=== PATIENT | male | born 1965 ===

== ENCOUNTER 2017-05-13 17:02 | Emergency (ER) | payer OTHER ==
[2017-05-13 17:16] VITALS: TEMP 97.9
--- NOTE | 2017-05-13 17:27 | ED ---
General Adult HPI - General Chief complaint: Abdominal Pain Stated complaint: rt side pain Time Seen by Provider: 05/13/17 17:18 Source: patient, RN notes reviewed Mode of arrival: ambulatory Limitations: no limitations - History of Present Illness Initial comments: Patient's a 51-year-old malewith a past medical history, who presents emergency room today with a chief complaint of right-sided flank pain that began this morning when he woke up. Patient does admit that it was a sharp type pain. He states it was constant throughout the day until he was driving here to the emergency room. Patient states that he has never had similar symptoms in the past. He does admit that he felt a little nauseated. She denies any pain or symptoms at this time. Patient denies any recent fever, chills, shortness of breath, chest pain, back pain, numbness or tingling, dysuria or hematuria, constipation or diarrhea, headaches or visual changes, or any other complaints. - Related Data Previous Rx's Medication Instructions Recorded Hydrocodone/Acetaminophen [Raymond 1 each PO Q6HR PRN #15 tab 05/13/17 5-325] Ibuprofen [Motrin] 600 mg PO Q6HR PRN #40 day 05/13/17 Ondansetron Odt [Zofran ODT] 4 mg PO Q8HR PRN #20 tab 05/13/17 Tamsulosin [Flomax] 0.4 mg PO DAILY #10 cap 05/13/17 Allergies Allergy/AdvReac Type Severity Reaction Status Date / Time No Known Allergies Allergy Verified 05/13/17 17:16 Review of Systems ROS Statement: Those systems with pertinent positive or pertinent negative responses have been documented in the HPI. ROS Other: All systems not noted in ROS Statement are negative. Past Medical History Past Medical History: No Reported History History of Any Multi-Drug Resistant Organisms: None Reported Past Surgical History: No Surgical Hx Reported Additional Past Surgical History / Comment(s): sinus surgery Past Psychological History: No Psychological Hx Reported Smoking Status: Current every day smoker Past Alcohol Use History: None Reported General Exam - General Exam Comments Initial Comments: General: The patient is awake and alert, in no distress, and does not appear acutely ill. Eye: Pupils are equal, round and reactive to light, extra-ocular movements are intact. No nystagmus. There is normal conjunctiva bilaterally. No signs of icterus. Ears, nose, mouth and throat: There are moist mucous membranes and no oral lesions. Neck: The neck is supple, there is no tenderness or JVD. Cardiovascular: There is a regular rate and rhythm. No murmur, rub or gallop is appreciated. Respiratory: Lungs are clear to auscultation, respirations are non-labored, breath sounds are equal. No wheezes, stridor, rales, or rhonchi. Gastrointestinal: Soft, non-distended, non-tender abdomen without masses or organomegaly noted. There is no rebound or guarding present. No CVA tenderness. Bowel sounds are unremarkable. Musculoskeletal: Normal ROM, no tenderness. Strength 5/5. Sensation intact. Pulses equal bilaterally 2+. Neurological: A&O x 3. CN II-XII intact, There are no obvious motor or sensory deficits. Coordination appears grossly intact. Speech is normal. Skin: Skin is warm and dry and no rashes or lesions are noted. Psychiatric: Cooperative, appropriate mood & affect, normal judgment. Limitations: no limitations Course Vital Signs 05/13/17 17:12 Temperature 97.9 F Pulse Rate 76 Respiratory 16 Rate Blood Pressure 173/82 O2 Sat by Pulse 100 Oximetry Medical Decision Making - Medical Decision Making Patient reexamined at this time shows no signs of distress. Resting comfortable in the stretcher. He denies any complaints here in emergency room. He does admit that the pain started this morning was located in the right flank. He states never had kidney stones before. Never had pain like this. Patient's labs been reviewed is urinalysis shows a large amount of blood. No sign of infection. On initial exam it was discussed with patient about further workup with blood work at the time he was comfortable in doing the urinalysis as he states he was not having any pain. He still comfortable with no pain at this time. Does not want to do further workup of any imaging of the CAT scan or x-ray. Has declined the blood work. States he feels comfortable being discharged home with follow-up this family physician. He states he is from out of town and lives in [facility]. Patient will be treated for kidney stone placed on Flomax given pain medication and nausea medication to use for his symptoms. He is advised to return here to the emergency room or follow-up if symptoms increase or worsen. Advised to follow-up with family doctor over the next 2 days. He states understanding and is in agreement. - Lab Data Lab Results 05/13/17 Range/Units 17:24 Urine Color Yellow Urine Appearance Clear (Clear) Urine pH 6.5 (5.0-8.0) Ur Specific [place] 1.007 (1.001-1.035) Urine Protein 1+ H (Negative) Urine Glucose (UA) Negative (Negative) Urine Ketones Negative (Negative) Urine Blood Large H (Negative) Urine Nitrite Negative (Negative) Urine Bilirubin Negative (Negative) Urine Urobilinogen <2.0 (<2.0) mg/dL Ur Leukocyte Esterase Negative (Negative) Urine RBC 124 H (0-5) /hpf Urine WBC 5 (0-5) /hpf Ur Squamous Epith Cells <1 (0-4) /hpf Hyaline Casts 9 H (0-2) /lpf Urine Mucus Few H (None) /hpf Disposition Clinical Impression: Kidney stone Disposition: HOME SELF-CARE Condition: Good Instructions: Kidney Stones (ED) Additional Instructions: Please use medication as discussed. Please follow-up with family doctor in the next 2 days. Please return to emergency room if the symptoms increase or worsen or for any other concerns. Prescriptions: Hydrocodone/Acetaminophen [Raymond 5-325] 1 each PO Q6HR PRN #15 tab PRN Reason: Pain Ibuprofen [Motrin] 600 mg PO Q6HR PRN #40 day PRN Reason: Pain Ondansetron Odt [Zofran ODT] 4 mg PO Q8HR PRN #20 tab PRN Reason: Nausea Tamsulosin [Flomax] 0.4 mg PO DAILY #10 cap Referrals: None,Stated [Primary Care Provider] - 1-2 days Time of Disposition: 18:08
[2017-05-13 17:48] LABS: Appearance,Urine Clear (Clear); Bilirubin,Urine Negative (Negative); Glucose,Urine (UA) Negative (Negative); Ketones,Urine Negative (Negative); Leukocyte Esterase,Urine Negative (Negative); Mucus,Urine Few /hpf; Nitrite,Urine Negative (Negative); PH, Urine 6.5 (5.0-8.0); Particle Count 3520; Protein,Urine 1+ (Negative); RBC,Urine 124 /hpf (0-5); Specific Gravity,Urine 1.007 (1.001-1.035); Squamous Epithelial Cell,Urine <1 /hpf (0-4); UA Billing (MACRO vs. MICRO) MICRO; Urobilinogen,Urine <2.0 mg/dL (<2.0); WBC,Urine 5 /hpf (0-5)
[2017-05-13 18:19] VITALS: BP 143/77; PULSE 79; RESP 18
== END 2017-05-13 18:21 | disposition home or self-care (01) ==
LOC: EC 17:02
DX: N20.0 Calculus of kidney (principal); F17.200 Nicotine dependence, unspecified, uncomplicated
CPT/HCPCS: 81001; 87086; 99284